=== PATIENT | female | born 1925 | race Caucasian/White ===

== ENCOUNTER 2016-07-22 15:29 | Emergency (ER) | payer OTHER ==
[2016-07-22 15:40] VITALS: PULSE 87; RESP 16; TEMP 97.7; O2SAT 93
[2016-07-22] MEDS ORDERED: PROPARACAINE 0.5% 15 ML OPHT DROP OP ONE (15:50)
[2016-07-22] MEDS ORDERED: LETS SOLN TOPICAL 1 EA SYR TP ONE (15:50)
[2016-07-22] MEDS ORDERED: OXYMETAZOLINE 30 ML NASAL SPRAY EACHNARE ONE ×2 (15:50→15:54)
[2016-07-22] MEDS ORDERED: SILVER NITRATE APPLICATOR 1 APPL TP ONE (15:51)
--- NOTE | 2016-07-22 16:11 | UCPHY ---
[id number] [id number] 07/22/16 15:41 HPI/ROS: CHIEF COMPLAINT: Recurrent epistaxis HISTORY OF PRESENT ILLNESS: 89-year-old female with no anticoagulant use history complaining of recurrent epistaxis left naris since last evening. No digital trauma. No dizziness. No gingival bleeding. No unusual bruising. No syncope or near syncope. She placed tissue packing in the area PHYSICAL EXAM (Prior to examination, patient consented to physical exam, hands were washed and my usual and customary physical exam procedures followed) 1) GENERAL: Well-developed, well-nourished, alert and oriented. Appears to be in no acute distress. 2) HEAD: Normocephalic 3) HEENT: sclera anicteric . Tissue packing in the left side which is removed revealing an area of friability at Kiesselbach's plexus. No active bleeding 4) LUNGS: Breathing comfortably. (Gopi Gonzalez) Constitutional: Initial Vital Signs Temperature (C) 36.5 C 07/22/16 15:34 Heart Rate 87 07/22/16 15:34 Respiratory Rate 16 07/22/16 15:34 Blood Pressure 217/82 H 07/22/16 15:34 O2 Sat (%) 93 07/22/16 15:34 O2 Delivery Mode Room Air Allergies/Adverse Reactions: No Known Allergies Allergy (Verified 07/22/16 15:40) Home Medications: Medication Instructions Recorded ? B/P Med 12/29/10 MDM/Departure - MDM Medications Given: Discontinued Medications Oxymetazoline HCl (Afrin Nasal [place]) 2 sprays EACHNARE EDNOW ONE Stop: 07/22/16 15:51 Last Admin: 07/22/16 16:15 Dose: 2 spray Oxymetazoline HCl (Afrin Nasal [place]) 2 sprays EACHNARE EDNOW ONE Stop: 07/22/16 15:55 Last Admin: 07/22/16 16:23 Dose: Not Given Proparacaine HCl (Alcaine 0.5%) 1 drops OP EDNOW ONE Stop: 07/22/16 15:51 Last Admin: 07/22/16 16:19 Dose: Not Given Silver Nitrate/Potassium Nitrate (Silver Nitrate Applicator) 1 each TP EDNOW ONE Stop: 07/22/16 15:52 Last Admin: 07/22/16 16:14 Dose: 1 each Tetracaine/Epinephrine/Lidocaine (Lets Soln Topical) 1 ea TP EDNOW ONE Stop: 07/22/16 15:51 Last Admin: 07/22/16 16:14 Dose: 1 ea ED Course/Re-evaluation: Urgent Care PA supervision Physician documentation: The patient was evaluated and managed by the physician wellness assistant. My co- signature indicates that I have reviewed this chart and I agree with the findings and plan of care as documented. I am the secondary supervising physician. (Endy Lechuga) - Depart Disposition: Home, Routine, Self-Care Clinical Impression: Acute anterior epistaxis Condition: Good Instructions: Nosebleed (ED) Additional Instructions: If you develop further episodes of nosebleed, place direct pressure. If The bleeding does not stop after 20 minutes return to the Urgent Care go to the emergency department Referrals: Dione Lan MD [Medical Doctor] - 1-2 days without fail (Dr. Dione lan is an ear nose throat doctor) - PQRS PQRS Measurement: 134: Depression screening and followup, PRIME MD-PHQ2 (12 years and older) Over the last 2 weeks, how often have you been bothered by any of the following problems? 1. Feeling down, depressed, or hopeless? 2. Little interest or pleasure in doing things? Patient answered no to both 1 and 2 130: Documentation of medications. Reviewed all patient medications, doses, route and frequency. 226: Do you smoke? No. 47: 65 and older: Advanced care planning. Patient designates surrogate decision maker as spouse. 51: 18 years old and older with diagnosis of COPD, spirometry performance. Patient has no history of COPD 52: 18 years old and older with COPD and symptoms of COPD or FEV1<60% predicted prescribed a B Agonist. Not applicable (Gopi Gonzalez)
[2016-07-22 17:03] VITALS: BP 179/90
== END 2016-07-22 17:03 | disposition home or self-care (01) ==
LOC: CED 15:29
DX: R04.0 Epistaxis (principal); Z87.891 Personal history of nicotine dependence
CPT/HCPCS: G0463-PO

== ENCOUNTER 2017-02-09 09:50 | Observation (INO) | payer OTHER ==
--- NOTE | 2017-02-09 10:22 | EDPHY ---
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 This morning around 7:30 a.m. the patient started to feel nauseous and "blah". She noticed increased right arm numbness. No difficulty with speech or with word finding. Patient had a procedure done on her eyes yesterday for cataracts and is concerned the laser may have caused an issue with her brain clips. She denies fever, chills, chest pain, shortness of breath, palpitations, vomiting, diarrhea, urinary complaints, headache, or lightheadedness. The patient is not anticoagulated. REVIEW OF SYSTEMS: Aside from elements discussed in the HPI, a comprehensive 10-point review of systems was reviewed and is negative. PAST MEDICAL HISTORY: Hypertension SOCIAL HISTORY: , at bedside. VITAL SIGNS Reviewed by me. GENERAL: Elderly, bright, alert, pleasant in no acute distress. HEENT: Atraumatic. Eyes: PERRL, EOMI, no nystagmus. No icterus. No injection. Mouth: moist mucous membranes. No erythema or lesions. Neck: Supple, FROM, no meningismus. Nontender to palpation. No adenopathy. No bruit although murmur radiates to carotids. LUNGS: Clear to auscultation bilaterally, no wheezes, rhonchi or rales. CARDIAC: Regular rate and rhythm. 4/6 systolic, 1/6 diastolic murmur- able to hear in carotids ABDOMEN: Soft, nontender, nondistended, bowel sounds normal. BACK: No CVA tenderness. EXTREMITIES: No trauma. No edema. Range of motion is normal throughout. NEURO: Alert and oriented, cranial nerves II through XII are intact. Decreased recordak operator strength on the right. Sensation intact to light touch. Slight pronator drift on right SKIN: Warm and dry, no rash. PSYCHIATRIC: Normal mentation, no agitation. Portions of this note were transcribed by a medical office technology instructor. I personally performed a history, physical exam, medical decision making, and confirmed accuracy of information the transcribed note. ED Course: Patient with history of brain aneuyism presents with increased right arm numbness. Patient has baseline mild right sided numbness reidual from prior stroke. This morning she felt increased numbness in her right arm. Neurological findings include decreased recordak operator sensation on the right. Slight pronator drift. ONset of symptoms at 7:30am. Stroke alert called. Plan for CT imaging. 10:30 a.m.: I consulted Dr. Soares, Neurologist. Patient is not a candidate for tPA. She is over the 3 hour margin. Recommends eval for stroke and admission. 12-LEAD EKG: Please see the full report in [facility]. My interpretation: LBBB. No prior EKG for comparison. 10:55 a.m.: CT is negative for acute bleeding. 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 Patient has metal margarita in skull. Unclear if these are MRI compatible , but most likely they are not as procedure was done in 1984. Troponin is normal. Lab work is otherwise unremarkable. 11:35 a.m.: I spoke to the hospitalist team, the patient will be admitted to Dr. Nicole for further stroke evaluation. Of note, patients blood pressure has been quite elevated throughout her ED course. EKG demostrates (?) new LBBB? She will require further cardiac eval as well as eval for TIA/CVA MDM: Differential diagnoses the patient's presenting complaints was considered including but not limited to intracranial injury, TIA, ischemic cerebrovascular accident, hemorrhagic cerebrovascular accident, hypoglycemia, complex migraine, metastases, tumor, seizure, or electrolyte abnormality - Data Points Imaging Results: Imaging Impressions Chest X-Ray 02/09/17 10:29 Impression: No acute findings in the chest. Head CT 02/09/17 10:29 Impression: 1. No acute intracranial findings. 2. Stable left parietal encephalomalacia. 3. Diffuse cerebral atrophy with periventricular and subcortical low attenuation consistent with chronic microvascular ischemic gliosis. 4. Additional findings as above. Findings discussed with Dr. Lizy Harrison, on February 09, 2017 at 1056 hours. Imaging: Discussed imaging studies w/ call or contact centre operator Radiologist Laboratory Results: Laboratory Results 02/09/17 10:34 02/09/17 10:34 02/09/17 02/09/17 02/09/17 10:34 10:34 10:34 WBC 5.35 10^3/uL 10^3/uL (3.80-9.50) RBC 4.19 10^6/uL 10^6/uL (4.18-5.33) Hgb 15.0 g/dL g/dL (12.6-16.3) POC Hgb Hct 45.4 % % (38.0-47.0) POC Hct MCV 108.4 fL H fL (81.5-99.8) MCH 35.8 pg H pg (27.9-34.1) MCHC 33.0 g/dL g/dL (32.4-36.7) RDW 13.2 % % (11.5-15.2) Plt Count 210 10^3/uL 10^3/uL (150-400) MPV 9.5 fL fL (8.7-11.7) Neut % (Auto) 64.1 % % (39.3-74.2) Lymph % (Auto) 26.5 % % (15.0-45.0) [place] % (Auto) 7.9 % % (4.5-13.0) Eos % (Auto) 0.9 % % (0.6-7.6) Baso % (Auto) 0.4 % % (0.3-1.7) Nucleat RBC Rel Count 0.0 % % (0.0-0.2) Absolute Neuts (auto) 3.43 10^3/uL 10^3/uL (1.70-6.50) Absolute Lymphs (auto) 1.42 10^3/uL 10^3/uL (1.00-3.00) Absolute Monos (auto) 0.42 10^3/uL 10^3/uL (0.30-0.80) Absolute Eos (auto) 0.05 10^3/uL 10^3/uL (0.03-0.40) Absolute Basos (auto) 0.02 10^3/uL 10^3/uL (0.02-0.10) Absolute Nucleated RBC 0.00 10^3/uL 10^3/uL (0-0.01) Immature Gran % 0.2 % % (0.0-1.1) Immature Gran # 0.01 10^3/uL 10^3/uL (0.00-0.10) PT 13.7 SEC SEC (12.0-15.0) INR 1.06 (0.83-1.16) POC Sodium Sodium 140 mEq/L mEq/L (134-144) POC Potassium Potassium 4.4 mEq/L mEq/L (3.5-5.2) POC Chloride Chloride 105 mEq/L mEq/L (97-110) Carbon Dioxide 21 mEq/l L mEq/l (22-31) Anion Gap 14 mEq/L mEq/L (8-16) POC BUN BUN 12 mg/dL mg/dL (7-23) Creatinine 0.7 mg/dL mg/dL (0.6-1.0) POC Creatinine Estimated GFR > 60 Glucose 91 mg/dL mg/dL (70-100) POC Glucose Calcium 9.8 mg/dL mg/dL (8.5-10.4) Troponin I < 0.012 ng/mL ng/mL (0.000-0.034) 02/09/17 10:30 WBC RBC Hgb POC Hgb 17.0 gm/dL H gm/dL (12.6-16.3) Hct POC Hct 50 % H % (38-47) MCV MCH MCHC RDW Plt Count MPV Neut % (Auto) Lymph % (Auto) [place] % (Auto) Eos % (Auto) Baso % (Auto) Nucleat RBC Rel Count Absolute Neuts (auto) Absolute Lymphs (auto) Absolute Monos (auto) Absolute Eos (auto) Absolute Basos (auto) Absolute Nucleated RBC Immature Gran % Immature Gran # PT INR POC Sodium 142 mEq/L mEq/L (134-144) Sodium POC Potassium 4.0 mEq/L mEq/L (3.3-5.0) Potassium POC Chloride 104 mEq/L mEq/L (97-110) Chloride Carbon Dioxide Anion Gap POC BUN 12 mg/dL mg/dL (7-23) BUN Creatinine POC Creatinine 0.7 mg/dL mg/dL (0.6-1.0) Estimated GFR Glucose POC Glucose 95 mg/dL mg/dL (70-100) Calcium Troponin I Point of Care Test Results: 02/09/17 10:30 POC Sodium 142 POC Potassium 4.0 POC Chloride 104 POC BUN 12 POC Creatinine 0.7 POC Glucose 95 General Time Seen by Provider: 02/09/17 10:15 Initial Vital Signs: Initial Vital Signs Temperature (C) 36.5 C 02/09/17 09:53 Heart Rate 79 02/09/17 09:53 Respiratory Rate 14 02/09/17 09:53 Blood Pressure 216/94 H 02/09/17 09:53 O2 Sat (%) 94 02/09/17 09:53 O2 Delivery Mode Room Air Allergies/Adverse Reactions: No Known Allergies Allergy (Verified 07/22/16 15:40) Home Medications: Medication Instructions Recorded C/E/Zn/Cu/OM3/DHA/EPA/LUT/ZEAX 1 each PO DAILY 02/09/17 [Preservision Areds 2 Softgel] Herbals/Supplements -Info Only 1 ea PO AD 02/09/17 Lisinopril [Zestril 5 mg (*)] 5 mg PO DAILY 02/09/17 Departure - Departure Disposition: [facility] Acute Clinical Impression: Paresthesia, Rule out TIA Condition: Fair Report Scribed for: Lizy Harrison Report Scribed by: Francheska Fam Date of Report: 02/09/17 Time of Report: 10:32
--- NOTE | 2017-02-09 10:35 | CPEKG ---
Heart Rate: 86 RR Interval: 698 P-R Interval: 220 QRSD Interval: 148 QT Interval: 416 QTC Interval: 498 P Saco: 76 QRS Saco: -23 T Wave Saco: 139 EKG Severity - ABNORMAL ECG - EKG Impression: SINUS RHYTHM EKG Impression: FIRST DEGREE AV BLOCK EKG Impression: LEFT BUNDLE BRANCH BLOCK Electronically Signed By: Lizy Harrison 09-Feb-2017 16:22:23
[2017-02-09 10:49] LABS: % IMMATURE GRANULYOCYTES 0.2 % (0.0-1.1); ABSOLUTE IMMATURE GRANULOCYTES 0.01 10^3/uL (0.00-0.10); ADD DIFF? NO; ADD MORPH? NO; ADD SCAN? NO; ATYPICAL LYMPHOCYTE FLAG 10 (0-99); FRAGMENT RBC FLAG 0 (0-99); HEMATOCRIT 45.4 % (38.0-47.0); LEFT SHIFT FLG 0 (0-99); LIPEMIA HEMOLYSIS FLAG 80 (0-99); MEAN CELL HEMOGLOBIN 35.8 pg (27.9-34.1); MEAN CELL VOLUME 108.4 fL (81.5-99.8); MEAN PLATELET VOLUME 9.5 fL (8.7-11.7); PLATELET CLUMPS FLAG 20 (0-99); PLATELET COUNT 210 10^3/uL (150-400); RED BLOOD CELL COUNT 4.19 10^6/uL (4.18-5.33); RED CELL DISTRIBUTION WIDTH 13.2 % (11.5-15.2)
[2017-02-09 11:22] LABS: ANION GAP 14 mEq/L (8-16); CALCIUM 9.8 mg/dL (8.5-10.4); CARBON DIOXIDE 21 mEq/l (22-31); CHLORIDE 105 mEq/L (97-110); CREATININE 0.7 mg/dL (0.6-1.0); GLOMERULAR FILTRATION RATE > 60; GLUCOSE 91 mg/dL (70-100); INR 1.06 (0.83-1.16); POTASSIUM 4.4 mEq/L (3.5-5.2); PROTIME(PATIENT) 13.7 SEC (12.0-15.0); SODIUM 140 mEq/L (134-144)
[2017-02-09 11:34] LABS: TROPONIN I < 0.012 ng/mL (0.000-0.034)
[2017-02-09] MEDS ORDERED: LABETALOL HCL 5 MG/ML 20 ML MDV IVP PRN (13:42)
[2017-02-09] MEDS ORDERED: Herbals/Supplements -Info Only PO SCH (14:00)
[2017-02-09] MEDS ORDERED: ACETAMINOPHEN 325 MG TAB PO PRN (14:33)
[2017-02-09] MEDS ORDERED: ONDANSETRON 4 MG/2 ML VIAL IVP PRN (14:33)
[2017-02-09] MEDS ORDERED: ONDANSETRON DISINTEGRATING 4 MG TAB PO PRN (14:33)
--- NOTE | 2017-02-09 15:04 | GHP ---
[f rep st] HISTORY AND PHYSICAL DATE OF ADMISSION: 02/09/2017 CHIEF COMPLAINT: Right arm weakness. HISTORY OF PRESENT ILLNESS: An 89-year-old female with history of brain aneurysm, status post clipping in 1982 with chronic mild right-sided deficits, left bundle branch block, hypertension, presenting with right arm weakness. She was in her normal state of health yesterday. This morning at 7 a.m., she noted increased right arm numbness and felt blah and nauseated. She did not having difficulty with speech or word-finding and this was confirmed by her . She had a procedure done on her eyes yesterday for cataracts. Concerned the laser may have caused an issue with her brain clips. She denies any fevers, chills, or sweats. No chest pain, shortness of breath. Denies lower extremity swelling. No palpitations. No dysuria or diarrhea. No vomiting. REVIEW OF SYSTEMS: I completed a 10-point review of systems, negative except as noted in HPI. PAST MEDICAL HISTORY: 1. Hypertension. 2. Chronic left bundle branch blocks noted as far back as 2007. 3. Mild to moderate aortic regurgitation. 4. Moderate mitral regurgitation on echo 06/2015. 5. Vitamin D deficiency. PAST SURGICAL HISTORY: 1. Brain aneurysm. 2. Foot surgery. 3. Cataracts. SOCIAL HISTORY: Lives in [place] with her . Prior tobacco for 25 to 30 years. Drinks 2 glasses of wine a day. No illicits. FAMILY HISTORY: Cousin with a brain aneurysm. Father had an UT at age 50. Mother of natural causes age 97. HOME MEDICATIONS: Herbal supplement, lisinopril 5 mg daily. PHYSICAL EXAM: VITAL SIGNS: Temperature 36.5, blood pressure 216/94, heart rate 70s, respiration 14, 94% on room air. GENERAL: Patient is thin, sitting up in bed, smiling. No acute distress. HEENT: PERRLA. EOMI. Moist mucous membranes. CV: Regular rate and rhythm, 3/4 murmur heard at left lower sternal border. LUNGS: Clear. No crackles. MUSCULOSKELETAL: 5/5 upper lower extremity strength. NEURO: 2 through 12 intact. Normal sensation to touch. No pronator drift. Symmetric patellar and Achilles reflexes. PSYCH: Alert and oriented x3. IMAGING: Chest x-ray, personally reviewed by me, no effusion or opacity. Head CT: No acute intracranial findings. Stable left parietal encephalomalacia. Diffuse cerebral atrophy with periventricular and subcortical low attenuation consistent with chronic microvascular ischemic gliosis. Incomplete fusion of the posterior arch of C1, a benign variant. EKG personally reviewed by me. Left bundle branch block. No old here, but I reviewed [place] and PCP documented EKG in June with left bundle branch block, as well as back to 2007. ASSESSMENT AND PLAN: 1. Concern for transient ischemic attack: not a tPA candidate. Head CT without acute bleed. Cannot undergo MRI with brain aneurysm clips. Will order CTA of head and neck. Monitor on telemetry for arrhythmia. Will obtain an echocardiogram. Check lipids. Start a baby aspirin. Allow for permissive hypertension. P.r.n. labetalol as needed. Will have PT, OT, and Speech evaluate. Neurology will consult in the morning. 2. Accelerated hypertension. Blood pressure greater than 200 on admission. She states compliance with her lisinopril, will monitor here. Up titrate home medications as needed. P.r.n. labetalol. 3. Left bundle branch block: no chest pain. This is chronic per record reviews. 4. Moderate AR/MR: She is euvolemic. BP control. 5. Diet regular. 6. Deep vein thrombosis prophylaxis. SCDs. DISPOSITION: Patient warrants observation admission given concern for TIA, requiring telemetry, further imaging and neuro consultation. /[id number]/MODL MTDD
[2017-02-09] MEDS ORDERED: IOPAMIDOL (ISOVUE 370) 100 ML BTL IV ONE (15:40)
--- NOTE | 2017-02-09 16:43 | ECHO ---
[id number] + + [address] : : [place] [address] : : [phone] + + Adult Echocardiographic Report + --------+ :Name: JEAN NARVAEZ DStudy Date: 02/09/2017 03:48 PM : : Hospital Admission Number: [id number] Locat ion: 347: :: 1925 Gender: Female Height: 59 in : :Age: 89 yrs Race: WH Weight: 109 l b : :Reason For Study: TIA : : BSA: 1.4 mete rs2 : :History: No previous : + --------+ MMode/2D Measurements \T\ Calculations IVSd: 1.4 cm LVIDd: 3.7 cm FS: 25.9 % LVOT diam: 1.7 cm LVPWd: 1.0 cm LVIDs: 2.7 cm EDV(Teich): 57.7 ml LVOT area: 2.3 cm2 ESV(Teich): 27.9 ml EF(Teich): 51.7 % Normal Measurement Values: + + :LVIDd (3.5-5.7cm) IVSd (0.6-1.1cm) LVPWd (0.6-1.1cm) Aortic Root (2.0-3.7cm)Left Atrium (1.5-4.0cm): :LV Vol(d) (76-115ml) LV Vol(s) (29-48ml) Ejec Fraction (50-65%)PV Kali (0.6- 1.2m/s) TV Kali (0.4-1.0m/s) : :MV E Kali (0.8-1.0m/s)MV A Kali (0.3-1.0m/s)LVOT Kali (0.7-1.2m/s) Asc Ao Kali ( 0.9-1.8m/s) : + + Doppler Measurements \T\ Calculations MV E max kali: MV V2 mean: Ao mean PG: LV V1 max: 96.3 cm/sec 114.8 cm/sec 8.6 mmHg 122.4 cm/sec MV A max kali: MV mean PG: Ao V2 mean: LV V1 max P.6 cm/sec 5.7 mmHg 139.9 cm/sec 6.0 mmHg MV E/A: 0.65 MV V2 VTI: 46.1 cm Ao V2 VTI: 41.4 cm LV V1 mean PG: MV dec time: MVA(VTI): 1.5 cm2 CHELSY(I,D): 1.6 cm2 3.8 mmHg 0.26 sec LV V1 mean: 95.5 cm/sec LV V1 VTI: 29.3 cm SV(LVOT): 68.2 ml Left Ventricle The left ventricle is normal in size and function. There is moderate asymmetric left ventricular hypertrophy. Ejection Fraction = 55-60%. Regional wall motion abnormalities cannot be excluded due to limited visualization. Right Ventricle The right ventricle is normal in size and function. Atria The left atrial size is normal. Right atrial size is normal. The interatrial septum is intact with no evidence for an atrial septal defect. Injection of contrast documented no interatrial shunt. Mitral Valve The mitral valve is normal in structure and function. There is mild mitral annular calcification. There is mild to moderate mitral stenosis. There is mild mitral regurgitation. Tricuspid Valve The tricuspid valve is normal in structure and function. There is no tricuspid stenosis. There is trace to mild tricuspid regurgitation. Aortic Valve Mild Aortic Valve Calcification. The aortic valve is trileaflet. There is no aortic stenosis. Mild aortic regurgitation. Pulmonic Valve The pulmonic valve is not well visualized. There is no pulmonic valvular regurgitation. Great Vessels The aortic root is normal size. Pericardium/Pleural There is a fat pad seen. Conclusion A complete two-dimensional transthoracic echocardiogram was performed (2D, M-mode, Doppler and color flow Doppler). Contrast injection was performed. The study was technically difficult. There is moderate asymmetric left ventricular hypertrophy. The left ventricle is normal in size and function. Ejection Fraction = 55-60%. There is mild mitral annular calcification. There is mild to moderate mitral stenosis. There is mild mitral regurgitation. There is trace to mild tricuspid regurgitation. Mild Aortic Valve Calcification Mild aortic regurgitation. Injection of contrast documented no interatrial shunt. No prior echo No obvious cardiac source of embolism Final Reading Physician: Dr Alina Sanchez electronically signed on 02/09/2017 04:42 PM Ordering Physician: Mickie Richey Performed By: Susie Conde
[2017-02-09 17:02] LABS: ALBUMIN 4.5 g/dL (3.5-5.0); BILIRUBIN,TOTAL 1.3 mg/dL (0.1-1.4); BILIRUBIN-CONJUGATED 0.5 mg/dL (0.0-0.5); BILIRUBIN-UNCONJUGATED 0.8 mg/dL (0.0-1.1); TOTAL PROTEIN 7.5 g/dL (6.3-8.2)
[2017-02-09] MEDS ORDERED: WHITE WINE 120 ML BOTTLE PO SCH (18:00)
[2017-02-09 18:08] LABS: COLOR YELLOW; LEUKOCYTE ESTERASE,URINE NEGATIVE (NEGATIVE); NITRITE,URINE NEGATIVE (NEGATIVE)
[2017-02-09 18:13] LABS: MUCUS TRACE /lpf (NONE-1+)
[2017-02-10 04:13] VITALS: O2SAT 90
[2017-02-10 05:26] LABS: ANION GAP 9 mEq/L (8-16); CALCIUM 9.2 mg/dL (8.5-10.4); CARBON DIOXIDE 25 mEq/l (22-31); CHLORIDE 104 mEq/L (97-110); CHOLESTEROL 172 mg/dL (140-220); CHOLESTEROL/HDL RATIO 2.53 RATIO (1.00-4.44); CREATININE 0.6 mg/dL (0.6-1.0); GLOMERULAR FILTRATION RATE > 60; GLUCOSE 82 mg/dL (70-100); HIGH DENSITY LIPOPROTEIN 68 mg/dL (40-85); LDL/HDL RATIO 1.26 RATIO (1.00-3.22); LOW DENSITY LIPOPROTEIN 86 mg/dL (80-100); NON-HIGH DENSITY LIPOPROTEIN 104 mg/dL (90-129); SODIUM 138 mEq/L (134-144); TRIGLYCERIDE 92 mg/dL (35-135); VERY LOW DENSITY LIPOPROTEINS 18 mg/dL (8-25)
[2017-02-10 07:44] VITALS: BP 178/84; PULSE 68; RESP 21; TEMP 98.3
[2017-02-10] MEDS ORDERED: ASPIRIN 81 MG CHEWABLE TAB PO SCH (09:00)
[2017-02-10] MEDS ORDERED: PRESERVISION AREDS2 FORMULA EYE VIT 1 EACH PO SCH (09:00)
[2017-02-10] MEDS ORDERED: ASPIRIN EC 81 MG TAB PO SCH (09:00)
[2017-02-10] MEDS ORDERED: LISINOPRIL 5 MG TAB PO SCH (09:00)
--- NOTE | 2017-02-10 09:03 | HOSPPROG ---
Hospitalist Progress Note Assessment/Plan: #Acute right arm weakness: likely unmasking of sxs with surgery day prior. Imaging, echo, telemetry unremarkable. Evaluated by Neuro. No antiplatelet warrants #Accelerated HTN: cont ACEI #Alcohol dependence: addictions counselor on cessation #Disp: DC today with Subjective: sxs resolved Objective: Vital Signs Temp Pulse Resp BP Pulse Ox 36.8 C 68 21 H 178/84 H 90 L 02/10/17 07:42 02/10/17 07:42 02/10/17 07:42 02/10/17 07:42 02/10/17 07:42 Laboratory Results 02/10/17 04:24 02/09/17 02/10/17 02/11/17 05:59 05:59 05:59 Output Total 400 Balance -400 PT 13.7 SEC (12.0-15.0) 02/09/17 10:34 INR 1.06 (0.83-1.16) 02/09/17 10:34 - Physical Exam Constitutional: no apparent distress Eyes: PERRL Ears, Nose, Mouth, Throat: moist mucous membranes, hearing normal Cardiovascular: regular rate and rhythym, no murmur, rub, or gallop Respiratory: no respiratory distress, no rales or rhonchi Gastrointestinal: normoactive bowel sounds, soft, non-tender abdomen Genitourinary: no bladder fullness Skin: warm Musculoskeletal: full muscle strength Neurologic: AAOx3, CN II-XII Intact, No weakness, No numbness, No facial droop Psychiatric: interacting appropriately ICD10 Worksheet Patient Problems: Problems Problem Status Onset Paresthesia Acute C. difficile diarrhea Acute 03/11/15
--- NOTE | 2017-02-10 11:52 | NEUROPROG ---
Assessment: [id number] CC: Right Arm Sensory Disturbance HPI: This patient was initially seen 02/10/17 as an inpatient consult at [facility]. She reported in 1982 she had left aneurysm repaired by a clip. She was left with left parietal brain injury with resultant baseline right arm janet-body sensory changes and right arm ataxia. This had been stable for years but on she noted right arm sensory changes worse then baseline but similar to her symptoms in 1982. Symptoms had resolved in the ER so she was not a TPA candidate. She had an eye procedure performed on 02/08/17 that went well. She cannot have a brain MRI due to her aneurysmal clip (per admission H&P note). She was admitted and neurology was consulted. She currently feels back to her baseline (slight right arm sensory changes and ataxia) and would like to go home. She reported significant GI distress from aspirin. PMHx: HTN, LBBB, AR/MR, low Vit D, Brain aneurysm with clip, foot surgery, cataracts Home Meds: lisinopril SHx: lives in [place] FHx: brain aneurysm status post clipping 1982, MS ROS: Pt denied acute fever, total vision loss, active severe chest pain, respiratory failure, total body severe rash, total bowel/bladder incontinence, psychosis, active seizures, or active bleeding O: VS reviewed General: Alert Eyes: Fundoscopic exam not able to visualize optic disks CV: Heart RRR, no murmur, no carotid bruit Lungs: Clear to auscultation bilaterally, no rhonci or rales Neuro: - Mental: . Oriented x person/place/date . concentration appears normal . speech fluency/comprehension normal . memory appears normal . fund of knowledge appear intact - Cranial Nerves: . II: PERRL, VFFTC . III/IV/: EOMI, no nystagmus, normal smooth pursuits, no Ptosis . V: facial sensation intact to LT . VII: face symmetric to eye closure and smile . VIII: hearing intact to conversation . IX/X: uvula raises symmetrically . XI: SCM 5/5 B/L strength . XII: tongue protrudes midline w/nl strength - Motor: . Tone: normal tone in all 4 extrem . Strength: no pronator drift, strength 5/5 throughout (B/L delt, bic, tri, hand oil burner repairer, hf/he, df/pf) - Reflexes: B/L bic/BR/patella 2/4 - Sensory: right arm feels less than rest of body (Like that since 1982 per patient) - Coord: right arm slightly ataxic (Like that since 1982 per patient) - Gait: deferred Labs: 02/09/17- CBC wnl, CMP CO2 21L 02/10/17- LDL 86 Rads: 02/09/17- Head CT: no acute changes, stable left parietal encephalomalacia, atrophy, CMVD (I personally visualized the images on 02/10/17) 02/09/17- CTA head/neck: no significant stenosis or vessel occlusion 02/09/17- TTE: no cardiac thrombus, no afib seen, no clear cardioembolic source for stroke Assessment: 1. Intermittent Right Arm Sensory Disturbance: Likely unmasking of prior brain injury from aneursym exacerbated by recent eye procedure. Possible TIA/small stroke but cannot confirm with MRI. Cannot have brain MRI due to aneurysmal clip in 1982. Pt declined any additional stroke evaluation and declined a statin or aspirin after I told her I suspected she most likely had unmasking of prior brain injury from 1982 and not a new stroke. She will call me for any questions or concerns. 2. Brain Aneurysm with clip placed in 1982 3. HTN Plan: - Pt declined aspirin, statin, or any additional stroke evaluation at this time - Cannot have brain MRI due to aneurysmal clip - F/U outpatient neurology clinic as needed (pt declined scheduled f/u visit) Objective: Vital Signs Temp Pulse Resp BP Pulse Ox 36.8 C 68 21 H 178/84 H 90 L 02/10/17 07:42 02/10/17 07:42 02/10/17 07:42 02/10/17 07:42 02/10/17 07:42 Laboratory Results 02/10/17 04:24 02/09/17 02/10/17 02/11/17 05:59 05:59 05:59 Output Total 400 Balance -400 PT 13.7 SEC (12.0-15.0) 02/09/17 10:34 INR 1.06 (0.83-1.16) 02/09/17 10:34 Allergies/Adverse Reactions: No Known Allergies Allergy (Verified 07/22/16 15:40)
--- NOTE | 2017-02-10 12:07 | GDS ---
[f rep st] DISCHARGE SUMMARY DISCHARGE DIAGNOSES: 1. 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 2. Acute right arm numbness. 3. Hypertension. 4. Alcohol dependence. 5. Chronic left bundle branch block. 6. Nzzv-vz-wwsrmswy aortic regurgitation. 7. Moderate mitral regurgitation. HISTORY OF PRESENT ILLNESS: The patient is an 89-year-old female with a history of brain aneurysm i n 1982, status post clipping, with chronic right-sided mild deficits, who presented with right arm n umbness. She woke the morning admission at 7:00 a.m. and noticed increased right arm numbness and f elt nauseated and "blah." She did not have any difficulty with speech or word finding, and this is confirmed by her . She did have a cataract procedure done the day prior, and is concerned th at the laser may have cause an issue with her brain clips. She denies any fevers, chills, or sweats . No nausea, vomiting, diarrhea, or dysuria. HOSPITAL COURSE BY PROBLEM: 1. Acute right arm numbness, concern for TIA: The patient was not a tPA candidate at the time of a rrival. A head CT was negative and cannot undergo MRI with aneurysm clips. CTA of head and neck wa s also unremarkable. Suspect this was unmasking of her prior symptoms with a history of aneurysm an d procedure day before. She was evaluated by Neurology. She had an echocardiogram that was done an d negative for PFO or thrombus. She had no evidence of arrhythmia. At this time, she does not need antiplatelets. She was provided Dr. Downs's number if issues recur. 2. Accelerated hypertension. The patient has resumed home lisinopril. Follow up with her PCP for up-titration. 3. Left bundle branch block. This has been chronic since 2007. She did not have any chest pain. Moderate AR, MR. She is euvolemic. Continue good blood pressure control. DISPOSITION: The patient is stable for discharge home with her . FOLLOWUP: With Neurology, Dr. Downs, if she has further symptoms. /[id number]/MODL
== END 2017-02-10 11:42 | disposition home or self-care (01) ==
LOC: F3N 13:35
PROVIDERS: ADMIT Hospitalist; ATTEND Internal Medicine
DX: R20.2 Paresthesia of skin (principal); R94.31 Abnormal electrocardiogram [ECG] [EKG]; Z87.891 Personal history of nicotine dependence; I10 Essential (primary) hypertension; F10.20 Alcohol dependence, uncomplicated; I44.7 Left bundle-branch block, unspecified; I08.0 Rheumatic disorders of both mitral and aortic valves; G81.91 Hemiplegia, unspecified affecting right dominant side; E55.9 Vitamin D deficiency, unspecified; Z86.79 Personal history of other diseases of the circulatory system; Z98.890 Other specified postprocedural states; Z95.828 Presence of other vascular implants and grafts; R11.0 Nausea; Z82.49 Family history of ischemic heart disease and other diseases of the circulatory system; R53.1 Weakness; I34.2 Nonrheumatic mitral (valve) stenosis; I77.9 Disorder of arteries and arterioles, unspecified
CPT/HCPCS: 70450; 70496; 70498; 71010; 93005; 93306; 97161; 97165; G0378; G8978; G8979; G8980; G8987; G8988; G8989; Q9967; 82947-QW

== ENCOUNTER 2017-02-19 14:26 | Observation (INO) | payer OTHER ==
--- NOTE | 2017-02-19 14:46 | CPEKG ---
Heart Rate: 84 RR Interval: 714 P-R Interval: 220 QRSD Interval: 150 QT Interval: 436 QTC Interval: 516 P [place]: 80 QRS [place]: -36 T Wave [place]: 131 EKG Severity - ABNORMAL ECG - EKG Impression: SINUS RHYTHM EKG Impression: FIRST DEGREE AV BLOCK EKG Impression: LEFT BUNDLE BRANCH BLOCK Electronically Signed By: Mayela Dodson 19-Feb-2017 18:07:26
--- NOTE | 2017-02-19 14:51 | EDPHY ---
H & P Stated Complaint: high blood pressure Time Seen by Provider: 02/19/17 14:41 HPI/ROS: CHIEF COMPLAINT: High blood pressure HISTORY OF PRESENT ILLNESS: This patient is an 89 year old female with history of brain aneurysm and hypertension complaining of high blood pressure. She was recently admitted for increased arm numbness. She was discharged home on her usual dose of lisinopril 5mg daily. She took her lisinopril this morning. She checks her blood pressure at home and noted it was high yesterday, but not as high as today. This morning, she called primary care provider after her high reading and the office recommended she present to the emergency department for evaluation. She is asymptomatic. She denies headache, chest pain, shortness of breath, or any other complaints. REVIEW OF SYSTEMS: A 10 point review of systems was performed and is negative with the exception of the elements mentioned in the history of present illness. - Personal History Current Tetanus/Diphtheria Vaccine: Unsure Current Tetanus Diphtheria and Acellular Pertussis (TDAP): Unsure - Medical/Surgical History PMH: Cerebral aneurysm. Hypertension. Hx Asthma: No Hx Chronic Respiratory Disease: No Hx Diabetes: No Hx Cardiac Disease: No Hx Renal Disease: No Hx Cirrhosis: No Hx Alcoholism: No Hx HIV/AIDS: No Hx Splenectomy or Spleen Trauma: No Other PMH: Surg Brain anneurysm clipped. htn - Social History Smoking Status: Former smoker Additional Social History: at bedside. Retired. . Lives in [place]. - Physical Exam Exam: General Appearance: Alert, pleasant and smiling BP 218/98 Eyes: Pupils equal and round, no conjunctival pallor or injection ENT, Mouth: Mucous membranes moist Neck: Normal inspection Respiratory: Lungs are clear to auscultation Cardiovascular: 2/6 systolic murmur. Regular rate and rhythm Gastrointestinal: Abdomen is soft and non-tender Neurological: A&O, nonfocal exam Skin: Warm and dry, no rash Extremities: Nontender, no pedal edema Psychiatric: Mood and affect normal Constitutional: Initial Vital Signs Temperature (C) 36.4 C 02/19/17 14:30 Heart Rate 91 02/19/17 14:30 Respiratory Rate 16 02/19/17 14:30 Blood Pressure 210/92 H 02/19/17 14:30 O2 Sat (%) 94 02/19/17 14:30 O2 Delivery Mode Room Air Allergies/Adverse Reactions: No Known Allergies Allergy (Verified 07/22/16 15:40) Home Medications: Medication Instructions Recorded C/E/Zn/Cu/OM3/DHA/EPA/LUT/ZEAX 1 each PO DAILY 02/09/17 [Preservision Areds 2 Softgel] Herbals/Supplements -Info Only 1 ea PO AD 02/09/17 Lisinopril [Zestril 5 mg (*)] 5 mg PO DAILY 02/09/17 Aspirin [Aspirin 81mg (*)] 81 mg PO DAILY #30 tab 02/20/17 Hydrochlorothiazide [HCTZ (*)] 12.5 mg PO DAILY #30 cap 02/20/17 amLODIPine BESYLATE [Norvasc 5 mg 5 mg PO DAILY #30 tab 02/20/17 (*)] Medical Decision Making - Diagnostics EKG Interpretation: EKG interpreted by me reveals sinus rhythm, rate 84, first degree AV block, left bundle branch block. Interpretation: EKG unchanged from 02/09/17. ED Course/Re-evaluation: 89 year old female with history of cerebral aneurysm and hypertension presents with persistently high blood pressure. She is asymptomatic. BP 222/105 initially. Tried small adult cuff, BP remains elevated at 218/98. 3:10 BP 211/112. Patient remains quite hypertensive. Labetalol 10 mg IV given. Plan to admit for continued observation and management. 15:18 consulted with hospitalist service. Dr. Gayle accepts admission to PCU for observation of hypertensive urgency. Differential Diagnosis: Differential diagnosis includes though not limited to intracranial hemorrhage, acute coronary syndrome, acute renal insufficiency, medication noncompliance. - Data Points Laboratory Results: Laboratory Results 02/19/17 14:49 02/19/17 14:49 Medications Given: Discontinued Medications Amlodipine Besylate (Norvasc) 5 mg PO DAILY [facility] Stop: 08/19/17 08:59 Last Admin: 02/20/17 08:44 Dose: 5 mg Enoxaparin Sodium (Lovenox) 40 mg SC DAILY [facility] Stop: 08/19/17 08:59 Last Admin: 02/20/17 09:12 Dose: 40 mg Hydralazine HCl (Apresoline) 10 mg IVP Q6 PRN PRN Reason: SBP>160 Stop: 02/25/18 16:53 Last Admin: 02/20/17 08:55 Dose: 10 mg Hydrochlorothiazide (Microzide) 12.5 mg PO DAILY [facility] Stop: 08/19/17 08:59 Last Admin: 02/20/17 08:45 Dose: 12.5 mg Labetalol HCl (Labetalol Hcl) 10 mg IVP EDNOW ONE Stop: 02/19/17 15:14 Last Admin: 02/19/17 15:42 Dose: Not Given Labetalol HCl (Trandate Injection) 10 mg IVP ONCE ONE Stop: 02/19/17 15:46 Last Admin: 02/19/17 15:42 Dose: 10 mg Wine (White Wine) 120 ml PO DAILY AT 6PM [facility] Stop: 08/18/17 17:59 Last Admin: 02/19/17 17:45 Dose: 120 ml Departure - Departure Disposition: [facility] Inpatient Acute Clinical Impression: Hypertension Qualifiers: Hypertension type: essential hypertension Qualified Code(s): I10 - Essential ( primary) hypertension Condition: Fair Report Scribed for: Mayela Dodson Report Scribed by: Trudi Lara Date of Report: 02/19/17 Time of Report: 14:51 Physician Review and Approval Statement: 02/19/17 14:51 Portions of this note were transcribed by a durable medical equipment repairer. I personally performed a history, physical exam, medical decision making, and confirmed accuracy of information the transcribed note.
[2017-02-19 15:03] LABS: % IMMATURE GRANULYOCYTES 0.3 % (0.0-1.1); ABSOLUTE IMMATURE GRANULOCYTES 0.02 10^3/uL (0.00-0.10); ADD DIFF? NO; ADD MORPH? NO; ADD SCAN? NO; ATYPICAL LYMPHOCYTE FLAG 10 (0-99); FRAGMENT RBC FLAG 0 (0-99); HEMATOCRIT 45.8 % (38.0-47.0); LEFT SHIFT FLG 0 (0-99); LIPEMIA HEMOLYSIS FLAG 90 (0-99); MEAN CELL HEMOGLOBIN 37.3 pg (27.9-34.1); MEAN CELL HEMOGLOBIN CONCENTR. 34.9 g/dL (32.4-36.7); MEAN CELL VOLUME 106.8 fL (81.5-99.8); MEAN PLATELET VOLUME 9.7 fL (8.7-11.7); PLATELET CLUMPS FLAG 20 (0-99); PLATELET COUNT 248 10^3/uL (150-400); RED BLOOD CELL COUNT 4.29 10^6/uL (4.18-5.33); RED CELL DISTRIBUTION WIDTH 12.8 % (11.5-15.2)
[2017-02-19] MEDS ORDERED: LABETALOL HCL 50 MG/10 ML SYR IVP ONE (15:13)
[2017-02-19 15:27] LABS: ANION GAP 12 mEq/L (8-16); CALCIUM 9.8 mg/dL (8.5-10.4); CARBON DIOXIDE 24 mEq/l (22-31); CHLORIDE 102 mEq/L (97-110); CREATININE 0.7 mg/dL (0.6-1.0); GLOMERULAR FILTRATION RATE > 60; GLUCOSE 86 mg/dL (70-100); POTASSIUM 5.2 mEq/L (3.5-5.2); SODIUM 138 mEq/L (134-144); SPECIMEN HEMOLYSIS 182
[2017-02-19] MEDS ORDERED: LABETALOL HCL 5 MG/ML 20 ML MDV IVP ONE (15:45)
[2017-02-19] MEDS ORDERED: ACETAMINOPHEN 325 MG TAB PO PRN (16:56)
[2017-02-19] MEDS ORDERED: ONDANSETRON 4 MG/2 ML VIAL IVP PRN (16:56)
--- NOTE | 2017-02-19 17:43 | GHP ---
[f rep st] HISTORY AND PHYSICAL DATE OF ADMISSION: 02/19/2017 CHIEF COMPLAINT: Hypertension. HISTORY: The patient is an 89-year-old female, who was admitted and discharged on February 10 with some right arm numbness and worked up for possible TIA. She does have chronic right arm numbness du e to a brain aneurysm that was clipped in 1982. The right arm numbness was more pronounced than her chronic usual numbness. Workup was negative, so she was discharged home. She now re-presents to [facility] for accelerated hypertension. She checks her blood pressure daily at home. It typicall y runs 150/70. She takes 5 mg of lisinopril daily and she did take it this morning. Blood pressure today was 206/99. She called her primary care doctor who urged her to come to the emergency room. Review of old chart reveals systolic blood pressures were running quite high throughout that hospit alization as well, anywhere from 152 to almost 200, and there were no medication changes at hospital discharge with recommendation follow up with primary care for up titration of blood pressure medica tions. She denies any headache. There was no chest pain or shortness of breath. PAST MEDICAL HISTORY: 1. Brain aneurysm status post clipping in 1982. She has a residual chronic right-sided numbness. 2. Hypertension. 3. Chronic left bundle branch block. MEDICATIONS: Please see computer record for full detailed list. ALLERGIES: No known drug allergies. SOCIAL HISTORY: She drinks 2 glasses of wine per day. She previously smoked but not current. She lives her . REVIEW OF SYSTEMS: Review of systems complete review of systems obtained. Review of systems negati ve regarding constitutional, HEENT, GI, pulmonary, cardiovascular, , hematology, skin, musculoskel etal, endocrine, psych, except for positives and negatives as noted in the HPI. FAMILY HISTORY: Cousin with a brain aneurysm. Father with an MD at age 50. Mother at age 97. PHYSICAL EXAMINATION: GENERAL: Well-developed, well-nourished female in no acute distress. VITAL SIGNS: Temperature is 36.4, pulse 70, blood pressure 203/104 on presentation. Saturating at 91% on room air. EYES: Normal conjunctivae. Pupils equal, round, and reactive to light. ENT: Normal e ars and nose. Hearing intact. Normal teeth. Oropharynx moist. NECK: Trachea midline. No thyrom egaly. CHEST: Normal respiratory effort. LUNGS: Clear to auscultation bilaterally. CARDIOVASCUL AR: Regular rate and rhythm. No murmur. No lower extremity edema. ABDOMEN: Soft, nontender. No hepatomegaly. SKIN: Warm, dry, intact. No rash. MUSCULOSKELETAL: No cyanosis or clubbing. Strength 5/5 upper and lower extremities. NEURO: Cranial nerves intact. Decreased sensation to light touch, specific ally over the posterior right hand which is a distribution she does not typically have. PSYCH: Mirta rt and oriented x3. Normal affect. Normal judgment. Normal memory. LABORATORY DATA: White count 5.76, hematocrit 45.8, platelets 248. Sodium 138, potassium 5.2, chlo ride 102, bicarb 24, BUN 15, creatinine 0.7, glucose 86. EKG viewed by me. My personal interpretation is normal sinus rhythm with a left bundle branch block . OLD CHART REVIEW: I reviewed her old chart, she had an echocardiogram last hospitalization which sh owed LVH, but otherwise unremarkable. Her left bundle branch block was also present at that time. ASSESSMENT AND PLAN: 1. Hypertensive urgency. She received IV labetalol in the emergency room. I think her baseline bl ood pressure control is relatively suboptimal, although we have had a significant jump recently. He r potassium is high at 5.2, so I hesitate to up titrate her HANY inhibitor. I will start her on Norv asc and a little hydrochlorothiazide. Can restart lisinopril in the future if needed. Overnight, w e will use p.r.n. IV hydralazine for short term blood pressure control. 2. Chronic left bundle branch block. I doubt acute ischemia. Will follow troponins, although init ial 1 is negative. 3. Brain aneurysm. Clipping with chronic right arm numbness. She seems to have a degree of waxing and waning symptoms with this, given her recent hospitalization. She does complain of worsening ri ght arm numbness at this time, and given her accelerated hypertension I will check a head CT. She h ad a CT angiogram of the head and neck, as well as an echocardiogram on her most recent hospitalizat ion, and I do not think they need to be repeated. 4. Code status. Full. 5. Admission status. Will admit to observation, as she might be able to go home tomorrow if blood pressure is with better control. 6. Deep venous thrombosis prophylaxis. She is high risk, will place her on subcutaneous Lovenox. /[id number]/MODL
[2017-02-19] MEDS ORDERED: WHITE WINE 120 ML BOTTLE PO SCH (18:00)
[2017-02-19] MEDS: hydrALAZINE 20 MG/ML VIAL IVP PRN (21:05)
[2017-02-20 05:41] LABS: ANION GAP 10 mEq/L (8-16); CALCIUM 9.1 mg/dL (8.5-10.4); CARBON DIOXIDE 25 mEq/l (22-31); CHLORIDE 104 mEq/L (97-110); CREATININE 0.7 mg/dL (0.6-1.0); GLOMERULAR FILTRATION RATE > 60; GLUCOSE 78 mg/dL (70-100); POTASSIUM 3.6 mEq/L (3.5-5.2); SODIUM 139 mEq/L (134-144)
[2017-02-20 05:54] LABS: TROPONIN I < 0.012 ng/mL (0.000-0.034)
[2017-02-20 08:17] VITALS: PULSE 72; RESP 14; TEMP 98.6; O2SAT 95
[2017-02-20] MEDS: hydrALAZINE 20 MG/ML VIAL IVP PRN (08:55)
[2017-02-20] MEDS ORDERED: HYDROCHLOROTHIAZIDE 12.5 MG CAP PO SCH (09:00)
[2017-02-20] MEDS ORDERED: amLODIPine BESYLATE 5 MG TAB PO SCH (09:00)
[2017-02-20] MEDS ORDERED: ENOXAPARIN 40 MG/0.4 ML SYR SC SCH (09:00)
[2017-02-20] MEDS ORDERED: LISINOPRIL 10 MG TAB PO SCH (09:00)
--- NOTE | 2017-02-20 10:31 | HOSPPROG ---
Hospitalist Progress Note Assessment/Plan: 89 yo F admitted w hypertensive urgency htn: better controlled on norvasc/hctz outpt follow up dispo: home today > 30 minutes Subjective: no events tele. bp better controlled. R arm sx improved Objective: Vital Signs Temp Pulse Resp BP Pulse Ox 37.0 C 72 14 145/67 H 95 02/20/17 08:00 02/20/17 08:00 02/20/17 08:00 02/20/17 10:18 02/20/17 08:00 Laboratory Results 02/20/17 03:36 02/19/17 02/20/17 02/21/17 05:59 05:59 05:59 Intake Total 350 Balance 350 - Physical Exam Constitutional: no apparent distress, appears nourished Eyes: PERRL, anicteric sclera Ears, Nose, Mouth, Throat: moist mucous membranes, hearing normal Cardiovascular: regular rate and rhythym Respiratory: no respiratory distress, no rales or rhonchi Gastrointestinal: normoactive bowel sounds, soft, non-tender abdomen Genitourinary: no bladder fullness, No sutton in urethra Skin: warm, normal color Musculoskeletal: full muscle strength, no muscle tenderness Neurologic: AAOx3 ICD10 Worksheet Patient Problems: Problems Problem Status Onset Hypertension Acute C. difficile diarrhea Acute 03/11/15 Paresthesia Acute
[2017-02-20 11:35] VITALS: BP 135/65
--- NOTE | 2017-02-20 12:12 | GDS ---
[f rep st] DISCHARGE SUMMARY DISCHARGE DIAGNOSES: 1. Hypertensive urgency. 2. Hypertension. 3. History of brain aneurysm. HISTORY OF PRESENT ILLNESS: Please see the admission history and physical by Dr. Mariajose Gayle. HOSPITAL COURSE: The patient was admitted with hypertensive urgency of 210/92, with increased right hand numbness. 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 She had a nonischemic EKG. Her initial troponin was negative, but not undetectable, and it trended undetectable. She had no events on telemetry. Her blood pressure was 145/90 on the first hospital day. She did not have an oxygen requirement. DISCHARGE MEDICATIONS: She is discharged home with prescriptions for Norvasc and hydrochlorothiazid e. It was recommended that she take an aspirin as well. /[id number]/MODL
--- NOTE | 2017-02-20 17:49 | ASDISCHSUM ---
Discharge Information Plan Status:Home with No Needs Medically Cleared to Leave: Discharge Date:02/20/2017 12:04 PM CM D/C Disposition:Home, Routine, Self-Care ADT D/C Disposition:Home, Routine, Self-Care Projected Discharge Date:02/20/2017 12:04 PM Transportation at D/C: Discharge Delay Reason: Follow-Up Date:02/20/2017 12:04 PM Discharge Slot: Final Diagnosis: Placement Information Patient Contact Information Contact Name:JOSELIN Relationship: Address:[address] City:[place] [facility] Phone: [facility]/Zip Code:[place] [address] Email: Financial Information Financial Class: Primary Plan Desc:MEDICARE OUTPATIENT Primary Plan Number:[id number] Secondary Plan Desc:AD[place] PPO Secondary Plan Number:[id number] Assessment Information Intervention Information Intervention Type:*ZHU-Signed Date of Service:02/20/2017 10:48 AM Patient Type:Observation Staff Member:Lia Jaramillo Hours: Discipline: Severity: Comment:
== END 2017-02-20 12:04 | disposition home or self-care (01) ==
LOC: F2W 16:03
PROVIDERS: ADMIT Internal Medicine; ATTEND Internal Medicine
DX: I16.0 Hypertensive urgency (principal); R20.2 Paresthesia of skin; I10 Essential (primary) hypertension; I44.7 Left bundle-branch block, unspecified; Z86.79 Personal history of other diseases of the circulatory system; Z82.49 Family history of ischemic heart disease and other diseases of the circulatory system; Z87.891 Personal history of nicotine dependence
CPT/HCPCS: 70450; 93005; 96374; 97161; 99285; G0378; G8978; G8979; G8980; J0360; J1650; J3490